=== PATIENT | female | born 1960 | race Caucasian/White ===

== ENCOUNTER 2016-02-10 10:36 | Inpatient (IN) | payer MEDICARE, BC ==
[~2016-02-10] VITALS: Ht 167.6 cm; Wt 122.0 kg
[2016-02-10] VITALS (9 sets, daily range): BP systolic 93–107; RESP 11–27; TEMP 96.1; BMI 43.0
[2016-02-10] MEDS ORDERED: TEMAZEPAM 7.5 MG CAP PO PRN (12:20)
[2016-02-10] MEDS ORDERED: NITROGLYCERIN SL 0.4 MG TAB SL PRN (12:20)
[2016-02-10] MEDS ORDERED: TEMAZEPAM 15 MG CAP PO PRN (12:20)
[2016-02-10] MEDS ORDERED: LORAZEPAM 0.5 MG TAB PO PRN ×2 (12:20→16:55)
[2016-02-10] MEDS ORDERED: ALU/MAG/SIM 30 ML UDC PO PRN (12:20)
[2016-02-10] MEDS ORDERED: DOCUSATE SOD 100 MG CAP PO PRN (12:20)
[2016-02-10] MEDS ORDERED: TRAMADOL 50 MG TAB PO PRN (12:20)
[2016-02-10] MEDS ORDERED: ONDANSETRON 4 MG VIAL IV PRN (12:20)
[2016-02-10] MEDS ORDERED: ACETAMINOPHEN 325 MG TAB PO PRN ×2 (12:20→16:50)
[2016-02-10] MEDS ORDERED: NITROGLYCERIN/D5W 250 ML IV ONE (12:56)
[2016-02-10] MEDS ORDERED: ASPIRIN 81 MG CHEW TAB PO SCH (14:42)
[2016-02-10] MEDS ORDERED: ONDANSETRON 4 MG VIAL ONE (15:36)
[2016-02-10] MEDS ORDERED: MORPHINE 2 MG/ML SYR ONE ×2 (15:37→19:35)
[2016-02-10] MEDS ORDERED: LACTULOSE SOLN 20GM/30ML UDC PO PRN (16:50)
[2016-02-10] MEDS ORDERED: SALINE FLUSH 10 ML FLUSH PRN (16:55)
[2016-02-10] MEDS: Atorvastatin 10 MG TAB PO SCH (21:29)
[2016-02-10] MEDS: PREGABALIN 75 MG CAP PO SCH (21:29)
[2016-02-10] MEDS: SALINE FLUSH 10 ML FLUSH SCH (21:29)
[2016-02-10] MEDS: LEVEMIR INSULIN SUBQ SCH (21:30)
[2016-02-10] MEDS: TEMAZEPAM 15 MG CAP PO PRN (21:47)
[2016-02-11] VITALS (38 sets, daily range): BP systolic 78–141; RESP 5–24; TEMP 96–97.8; Ht 167.6 cm; Wt 122.0 kg
[2016-02-11] MEDS: PANTOPRAZOLE 40 MG TAB PO SCH (04:53)
[2016-02-11] MEDS: SODIUM CHLORIDE 0.9% FLUSH BAG 500 ML IV SCH (04:53)
[2016-02-11] MEDS ORDERED: DEXTROSE 50% 50 ML ONE (07:45)
[2016-02-11] MEDS: LEVEMIR INSULIN SUBQ SCH ×2 (07:47→16:58)
[2016-02-11] MEDS: DEXTROSE 50% SYRINGE 50 ML IV PRN ×3 (07:52→16:56)
[2016-02-11] MEDS: ASPIRIN EC 81 MG TAB PO SCH (08:45)
[2016-02-11] MEDS: SALINE FLUSH 10 ML FLUSH SCH ×2 (08:45→23:00)
[2016-02-11] MEDS: PREGABALIN 75 MG CAP PO SCH ×2 (09:00→22:59)
[2016-02-11] MEDS: LINZESS 145 MCG CAPSULE PO SCH (09:00)
[2016-02-11] MEDS: MORPHINE 2 MG/ML SYR IV PRN ×2 (09:57→23:44)
[2016-02-11] MEDS ORDERED: ALBUMIN HUMAN 25GM (25%) 100 ML IV PRN (13:50)
[2016-02-11] MEDS ORDERED: SODIUM CHLORIDE 0.9% 1,000 ML IV PRN (13:50)
[2016-02-11] MEDS ORDERED: ONDANSETRON 4 MG VIAL IV PRN (13:50)
[2016-02-11] MEDS ORDERED: SODIUM CHLORIDE 0.9% 1,000 ML IV SCH (13:50)
[2016-02-11] MEDS: DAKIN'S 0.0625% 480 ML TOPICAL SCH ×2 (14:27→23:42)
[2016-02-11] MEDS: COLLAGENASE OINT 30 GM TOPICAL SCH ×2 (14:28→23:43)
[2016-02-11] MEDS ORDERED: MIDAZOLAM 2 MG/2 ML INJ ONE (22:24)
[2016-02-11] MEDS ORDERED: LIDOCAINE 2% 20 ML ONE (22:24)
[2016-02-11] MEDS ORDERED: FENTANYL 100 MCG/2 ML AMP ONE (22:24)
[2016-02-11] MEDS: Atorvastatin 10 MG TAB PO SCH (22:59)
[2016-02-11] MEDS: RANOLAZINE ER 500 MG TAB PO SCH (22:59)
[2016-02-11] MEDS: TEMAZEPAM 15 MG CAP PO PRN (23:41)
[2016-02-11] MEDS: oxyCODONE/APAP 10/325 TABLET PO PRN (23:42)
[2016-02-12] VITALS (9 sets, daily range): BP systolic 92–138; RESP 16–20; TEMP 96.5–99.8
[2016-02-12] MEDS: SODIUM CHLORIDE 0.9% FLUSH BAG 500 ML IV SCH (05:20)
[2016-02-12] MEDS: PANTOPRAZOLE 40 MG TAB PO SCH (06:46)
[2016-02-12] MEDS: PREGABALIN 75 MG CAP PO SCH ×2 (08:19→23:23)
[2016-02-12] MEDS: APIXABAN 2.5 MG TAB PO SCH ×2 (08:19→23:22)
[2016-02-12] MEDS: LINZESS 145 MCG CAPSULE PO SCH (08:19)
[2016-02-12] MEDS: ASPIRIN EC 81 MG TAB PO SCH (08:19)
[2016-02-12] MEDS: RANOLAZINE ER 500 MG TAB PO SCH ×2 (08:19→23:30)
[2016-02-12] MEDS: LEVEMIR INSULIN SUBQ SCH ×2 (08:21→16:29)
[2016-02-12] MEDS: SALINE FLUSH 10 ML FLUSH SCH ×2 (08:21→23:29)
[2016-02-12] MEDS: oxyCODONE/APAP 10/325 TABLET PO PRN ×3 (09:30→23:22)
[2016-02-12] MEDS ORDERED: ALBUMIN HUMAN 25GM (25%) 100 ML IV PRN (10:15)
[2016-02-12] MEDS ORDERED: SODIUM CHLORIDE 0.9% 1,000 ML IV PRN (10:15)
[2016-02-12] MEDS ORDERED: ONDANSETRON 4 MG VIAL IV PRN (10:15)
[2016-02-12] MEDS ORDERED: SODIUM CHLORIDE 0.9% 1,000 ML IV SCH (10:15)
[2016-02-12] MEDS: DAKIN'S 0.0625% 480 ML TOPICAL SCH ×2 (16:30→23:30)
[2016-02-12] MEDS: COLLAGENASE OINT 30 GM TOPICAL SCH ×2 (16:31→23:30)
[2016-02-12] MEDS: Atorvastatin 10 MG TAB PO SCH (23:23)
[2016-02-12] MEDS: MORPHINE 2 MG/ML SYR IV PRN (23:25)
[2016-02-12] MEDS: TEMAZEPAM 15 MG CAP PO PRN (23:30)
[2016-02-13] VITALS (7 sets, daily range): BP systolic 80–96; RESP 18; TEMP 96.7–98.6
[2016-02-13] MEDS: SODIUM CHLORIDE 0.9% FLUSH BAG 500 ML IV SCH (04:16)
[2016-02-13] MEDS: PANTOPRAZOLE 40 MG TAB PO SCH (04:33)
[2016-02-13] MEDS: MORPHINE 2 MG/ML SYR IV PRN (04:33)
[2016-02-13] MEDS: LINZESS 145 MCG CAPSULE PO SCH (08:11)
[2016-02-13] MEDS: RANOLAZINE ER 500 MG TAB PO SCH ×2 (08:14→20:54)
[2016-02-13] MEDS: PREGABALIN 75 MG CAP PO SCH ×2 (08:37→20:54)
[2016-02-13] MEDS: SALINE FLUSH 10 ML FLUSH SCH ×2 (08:37→20:54)
[2016-02-13] MEDS: ASPIRIN EC 81 MG TAB PO SCH (08:37)
[2016-02-13] MEDS: LEVEMIR INSULIN SUBQ SCH ×2 (08:39→18:27)
[2016-02-13] MEDS ORDERED: MISSING DOSE XX ONE ×4 (10:45→21:00)
[2016-02-13] MEDS ORDERED: PANTOPRAZOLE 40 MG TAB PO ONE (11:05)
[2016-02-13] MEDS: APIXABAN 2.5 MG TAB PO SCH ×2 (12:31→20:54)
[2016-02-13] MEDS: CALCIUM ACETATE 667MG CAP PO SCH ×2 (12:31→17:00)
[2016-02-13] MEDS: oxyCODONE/APAP 10/325 TABLET PO PRN ×3 (12:33→20:54)
[2016-02-13] MEDS ORDERED: CALC CARB 500 MG CHEWTAB PO ONE (12:50)
[2016-02-13] MEDS: DAKIN'S 0.0625% 480 ML TOPICAL SCH ×2 (16:39→21:00)
[2016-02-13] MEDS: COLLAGENASE OINT 30 GM TOPICAL SCH ×2 (16:39→21:00)
[2016-02-13] MEDS: Atorvastatin 10 MG TAB PO SCH (20:54)
[2016-02-14] VITALS (11 sets, daily range): BP systolic 82–128; RESP 16–18; TEMP 96.7–99.3
[2016-02-14] MEDS: TEMAZEPAM 15 MG CAP PO PRN (00:29)
[2016-02-14] MEDS: SODIUM CHLORIDE 0.9% FLUSH BAG 500 ML IV SCH (04:34)
[2016-02-14] MEDS ORDERED: MISSING DOSE XX ONE (06:05)
[2016-02-14] MEDS: PANTOPRAZOLE 40 MG TAB PO SCH (06:30)
[2016-02-14] MEDS ORDERED: PANTOPRAZOLE 40 MG TAB PO SCH (07:00)
[2016-02-14] MEDS: DEXTROSE 50% SYRINGE 50 ML IV PRN (07:39)
[2016-02-14] MEDS: SALINE FLUSH 10 ML FLUSH SCH ×2 (07:57→20:00)
[2016-02-14] MEDS: CALCIUM ACETATE 667MG CAP PO SCH ×3 (07:58→18:59)
[2016-02-14] MEDS: LEVEMIR INSULIN SUBQ SCH ×2 (08:00→21:02)
[2016-02-14] MEDS: LINZESS 145 MCG CAPSULE PO SCH (09:15)
[2016-02-14] MEDS: PREGABALIN 75 MG CAP PO SCH ×2 (09:15→21:01)
[2016-02-14] MEDS: RANOLAZINE ER 500 MG TAB PO SCH ×2 (09:15→21:01)
[2016-02-14] MEDS: APIXABAN 2.5 MG TAB PO SCH ×2 (09:15→21:01)
[2016-02-14] MEDS: ASPIRIN EC 81 MG TAB PO SCH (09:15)
[2016-02-14] MEDS ORDERED: OXYCODONE/APAP 5/325 TAB PO PRN (10:10)
[2016-02-14] MEDS: DAKIN'S 0.0625% 480 ML TOPICAL SCH ×2 (11:40→21:03)
[2016-02-14] MEDS: COLLAGENASE OINT 30 GM TOPICAL SCH ×2 (11:41→21:03)
[2016-02-14] MEDS ORDERED: DEXTROSE 50% SYRINGE 50 ML IV PRN (14:20)
[2016-02-14] MEDS ORDERED: GLUCAGON 1 MG VIAL IM PRN (14:20)
[2016-02-14] MEDS: POLYETHYLENE GLYCOL 17 GM PACKET PO SCH (18:57)
[2016-02-14] MEDS: Atorvastatin 10 MG TAB PO SCH (21:01)
[2016-02-15] VITALS (8 sets, daily range): BP systolic 108–122; RESP 16–18; TEMP 96.6–97.9
[2016-02-15] MEDS: MORPHINE 2 MG/ML SYR IV PRN (00:08)
[2016-02-15] MEDS: SODIUM CHLORIDE 0.9% FLUSH BAG 500 ML IV SCH (05:41)
[2016-02-15] MEDS: PANTOPRAZOLE 40 MG TAB PO SCH (06:19)
[2016-02-15] MEDS: CALCIUM ACETATE 667MG CAP PO SCH ×3 (08:00→17:00)
[2016-02-15] MEDS: SALINE FLUSH 10 ML FLUSH SCH ×2 (08:00→20:35)
[2016-02-15] MEDS: APIXABAN 2.5 MG TAB PO SCH ×2 (09:00→20:32)
[2016-02-15] MEDS: POLYETHYLENE GLYCOL 17 GM PACKET PO SCH (09:00)
[2016-02-15] MEDS: PREGABALIN 75 MG CAP PO SCH ×2 (09:00→20:32)
[2016-02-15] MEDS: COLLAGENASE OINT 30 GM TOPICAL SCH ×2 (09:00→21:33)
[2016-02-15] MEDS: ASPIRIN EC 81 MG TAB PO SCH (09:00)
[2016-02-15] MEDS: RANOLAZINE ER 500 MG TAB PO SCH ×2 (09:00→20:32)
[2016-02-15] MEDS: LACTULOSE SOLN 20GM/30ML UDC PO SCH (09:00)
[2016-02-15] MEDS: DAKIN'S 0.0625% 480 ML TOPICAL SCH ×2 (14:53→21:33)
[2016-02-15] MEDS: Atorvastatin 10 MG TAB PO SCH (20:32)
[2016-02-15] MEDS: LEVEMIR INSULIN SUBQ SCH (20:35)
[2016-02-16] MEDS ORDERED: ONDANSETRON 4 MG VIAL IV PRN (00:15)
[2016-02-16 04:08] VITALS: BP_SYST 110; RESP 16; TEMP 97.8
[2016-02-16] MEDS: SODIUM CHLORIDE 0.9% FLUSH BAG 500 ML IV SCH (05:44)
[2016-02-16] MEDS: PANTOPRAZOLE 40 MG TAB PO SCH (06:06)
[2016-02-16 07:50] VITALS: BP_SYST 98; RESP 20; TEMP 97.1
[2016-02-16] MEDS: CALCIUM ACETATE 667MG CAP PO SCH ×2 (08:00→12:00)
[2016-02-16] MEDS: PREGABALIN 75 MG CAP PO SCH (09:12)
[2016-02-16] MEDS: POLYETHYLENE GLYCOL 17 GM PACKET PO SCH (09:12)
[2016-02-16] MEDS: RANOLAZINE ER 500 MG TAB PO SCH (09:12)
[2016-02-16] MEDS: APIXABAN 2.5 MG TAB PO SCH (09:12)
[2016-02-16] MEDS: LACTULOSE SOLN 20GM/30ML UDC PO SCH (09:12)
[2016-02-16] MEDS: SALINE FLUSH 10 ML FLUSH SCH (09:13)
[2016-02-16] MEDS: ASPIRIN EC 81 MG TAB PO SCH (09:13)
[2016-02-16] MEDS: DAKIN'S 0.0625% 480 ML TOPICAL SCH (09:15)
[2016-02-16] MEDS: COLLAGENASE OINT 30 GM TOPICAL SCH (09:15)
[2016-02-16 10:13] VITALS: BP_SYST 98; RESP 20; TEMP 97.1
[2016-02-16 11:14] VITALS: BP_SYST 98; RESP 18; TEMP 97.1
[2016-02-16 12:20] VITALS: BP_SYST 98; RESP 18; TEMP 97.1
[2016-02-16 14:55] VITALS: BP_SYST 100; RESP 18; TEMP 98.2
[2016-02-17] MEDS ORDERED: ERGOCALCIFEROL 50,000 UNITS (1.25 MG) CAP PO SCH (09:00)
== END 2016-02-16 15:39 | DRG 280 ==
LOC: ENRESERVDT → ENRESERVTM → ER 10:36 → ENPENDDIS 12:29 → EMR 12:29 → CCU 20:32 → 4THW 02-11 18:43
PROVIDERS: ADMIT Internal Medicine Cardiovascular Disease; ATTEND Internal Medicine Cardiovascular Disease
PROC: 4A023N7 Measurement of Cardiac Sampling and Pressure, Left Heart, Percutaneous Approach (ICD-10-PCS; principal; 2016-02-11)
PROC: B2151ZZ Fluoroscopy of Left Heart using Low Osmolar Contrast (ICD-10-PCS; 2016-02-11)
PROC: B2111ZZ Fluoroscopy of Multiple Coronary Arteries using Low Osmolar Contrast (ICD-10-PCS; 2016-02-11)
DX: I21.4 Non-ST elevation (NSTEMI) myocardial infarction (principal); G93.41 Metabolic encephalopathy; I50.30 Unspecified diastolic (congestive) heart failure; N18.6 End stage renal disease; Z68.41 Body mass index [BMI] 40.0-44.9, adult; Z99.2 Dependence on renal dialysis; I25.10 Atherosclerotic heart disease of native coronary artery without angina pectoris; E16.2 Hypoglycemia, unspecified; D64.9 Anemia, unspecified; E87.5 Hyperkalemia; Z89.512 Acquired absence of left leg below knee; E11.65 Type 2 diabetes mellitus with hyperglycemia; R53.83 Other fatigue; K59.00 Constipation, unspecified; G47.33 Obstructive sleep apnea (adult) (pediatric); T50.905A Adverse effect of unspecified drugs, medicaments and biological substances, initial encounter; E11.51 Type 2 diabetes mellitus with diabetic peripheral angiopathy without gangrene; Z79.82 Long term (current) use of aspirin; Z79.4 Long term (current) use of insulin; E11.40 Type 2 diabetes mellitus with diabetic neuropathy, unspecified; E11.319 Type 2 diabetes mellitus with unspecified diabetic retinopathy without macular edema; E55.9 Vitamin D deficiency, unspecified; Z86.73 Personal history of transient ischemic attack (TIA), and cerebral infarction without residual deficits; E66.9 Obesity, unspecified; M10.9 Gout, unspecified; Z86.14 Personal history of Methicillin resistant Staphylococcus aureus infection
CPT/HCPCS: 36415; 71010; 80048; 80053; 80061; 80069; 82550; 82553; 82947; 83036; 83735; 84484; 85014; 85018; 85025; 85610; 85730; 93005; 93306; 93458; 94799; 96365; 96366; 96375; 96376; 99232; 99254